=== PATIENT | male | born 1970 | race Caucasian/White ===

== ENCOUNTER → 2018-07-18 | Outpatient (CLI) | payer OTHER ==
--- NOTE | 2018-07-18 13:20 | PCVCIMAG ---
EXAM: BILATERAL SUPERFICIAL VENOUS DUPLEX INDICATION: Leg pain and swelling. FINDINGS: Right leg: No thrombus in the common femoral, main femoral, or popliteal veins. These veins are compressible. Right Great Saphenous Vein: At the saphenofemoral junction the diameter is 7.1 mm, in the mid thigh it is 5.2 mm, and in the calf it is 4.1 mm. There is not significant venous insufficiency/reflux throughout. Venous insufficiency/reflux duration is 0.3 seconds. Right Small Saphenous Vein: At the saphenopopliteal junction the diameter is 5.1 mm, and in the calf it is 7.3 mm. There is not significant venous insufficiency/reflux throughout. Venous insufficiency/reflux duration is 0 seconds. There is not a cranial extension present. Left leg: No thrombus in the common femoral, main femoral, or popliteal veins. These veins are compressible. Left Great Saphenous Vein: At the saphenofemoral junction the diameter is 7.1 mm, in the mid thigh it is 5.6 mm, and in the calf it is 4.8 mm. There is not significant venous insufficiency/reflux throughout. Venous insufficiency/reflux duration is 0 seconds. Left Small Saphenous Vein: At the saphenopopliteal junction the diameter is 4.0 mm, and in the calf it is 5.7 mm. There is not significant venous insufficiency/reflux throughout. Venous insufficiency/reflux duration is 0.2 seconds. There is not a cranial extension present. IMPRESSION: Right Great Saphenous Vein: No significant venous insufficiency/reflux is present as noted above. Right Small Saphenous Vein: No significant venous insufficiency/reflux is present as noted above. Left Great Saphenous Vein: No significant venous insufficiency/reflux is present as noted above. Left Small Saphenous Vein: No significant venous insufficiency/reflux is present as noted above. LOC:[id number]
--- NOTE | 2018-07-18 14:35 | PCVCIMAG ---
APPROVED REPORT Study performed: 07/18/2018 11:47:55 EXAM: Comprehensive 2D, Doppler, and color-flow Echocardiogram Patient Location: Echo lab Room #: 2Status: routine BSA: 2.22 HR: 871 bpmBP: 132/82 mmHg Rhythm: NSR Other Information Study Quality: Adequate Risk Factors: Cardiac Risk Factors: Hyperlipidemia Indications Palpitations Syncope Peripheral Edema Hypertension/HDD 2D Dimensions LVEF(%): 69.61 (>50%) IVSd: 8.22 (7-11mm)LVOT Diam: 23.78 (18-24mm) LVDd: 45.51 mm PWd: 9.76 (7-11mm)Ascending Ao: 33.52 (22-36mm) LVDs: 27.73 (25-40mm) Left Atrium: 27.35 (27-40mm) Aortic Root: 30.32 mm LV Single Plane 4CH: 62.52 % LV Single Plane 2CH: 62.27 %Fu's LVEF: 62.40 % Volumes Left Atrial Volume (Systole) Single Plane 4CH: 46.02 mLSingle Plane 2CH: 51.07 mL Biplane LA Volume: 49.00 mLLA ESV Index: 22.00 mL/m2 Aortic Valve AoV Peak Mino.: 1.45 m/s AO Peak Gr.: 8.38 mmHgLVOT Max P.65 mmHg LVOT Max V: 1.08 m/s FRANK Vmax: 3.30 cm2 Mitral Valve E/A Ratio: 1.0 MV Decel. Time: 146.61 ms MV E Max Mino.: 0.94 m/s MV A Mino.: 0.97 m/s IVRT: 72.66 ms TDI E/Lateral E': 8.55E/Medial E': 13.43 Medial E' Mino.: 0.07 m/s Lateral E' Mino.: 0.11 m/s Pulmonary Valve PV Peak Mino.: 1.11 m/sPV Peak Gr.: 4.94 mmHg Pulmonary Vein P Vein S: 0.79 m/sP Vein A: 0.76 m/s P Vein D: 0.47 m/sP Vein A Dur.: 83.0 msec P Vein S/D Ratio: 1.68 Tricuspid Valve TR Peak Mino.: 1.39 m/s TR Peak Gr.: 7.70 mmHg TV Vmax: 0.64 m/sPA Pressure: 15.00 mmHg Left Ventricle The left ventricle is normal size. There is normal LV segmental wall motion. There is normal left ventricular wall thickness. Left ventricular systolic function is normal. The left ventricular ejection fraction is within the normal range. LVEF is 60-65%. The left ventricular diastolic function is normal. Right Ventricle The right ventricle is normal size. The right ventricular systolic function is normal. Atria The left atrium size is normal. The right atrium size is normal. Aortic Valve Aortic valve is trileaflet. The aortic valve is normal in structure and function. No aortic regurgitation is present. There is no aortic valvular stenosis. Mitral Valve The mitral valve is normal in structure. There is no mitral valve regurgitation noted. No evidence of mitral valve stenosis. Tricuspid Valve The tricuspid valve is normal in structure. Trace tricuspid regurgitation. Pulmonic Valve The pulmonary valve is normal in structure. There is no pulmonic valvular regurgitation. Great Vessels The aortic root is normal in size. The ascending aorta is normal in size. Aortic arch is normal in caliber. IVC is normal in size and collapses with >50% inspiration Pericardium There is no pericardial effusion. There is no pleural effusion. <Conclusion> The left ventricle is normal size. There is normal left ventricular wall thickness. Left ventricular systolic function is normal. The right ventricle is normal size. The left atrium size is normal. There is no aortic valvular stenosis. There is no mitral valve regurgitation noted. Trace tricuspid regurgitation.
--- NOTE | 2018-07-18 14:36 | PCVCIMAG ---
APPROVED REPORT Study performed: 07/18/2018 12:25:08 Exam: Stress Echocardiogram Indication: Palpitations , Syncope Patient Location: Echo lab Stress Nurse: Brittney Pardo RN Room #: 2 Status: routine Ht: 5 ft 11 in HR: 82 bpm BP: 132/82 mmHg Rhythm: NSR Medical History Medical History: Hyperlipidemia Cardiac Risk Factors: Hyperlipidemia Previous Cardiac Procedures: none Pretest Chest Pain Characteristics: none Exercise History: Physically active Procedure The patient underwent an Exercise Stress Test using the Carlos Protocol. Blood pressure, heart rate, and EKG were monitored. An Echocardiogram was performed by radio/tv technician in four stages in quad fashion. At peak stress, four selected images were obtained and placed side by side with resting images for comparison. Stress Test Details Stress Test: Exercise stress testing was performed using a Carlos protocol. HR Resting HR: 82 bpmMax Heart Rate (APMHR): 172 bpm Max HR Achieved: 190 bpmTarget HR (85% APMHR): 146 bpm % of APMHR: 110 Recovery HR: 117 bpm HR response to stress: Normal HR response to stress BP Resting BP: 132/82 mmHg Max BP: 182/60 mmHg Recovery BP: 142/78 mmHg ECG Resting ECG: Sinus Rhythm Stress ECG: Sinus Rhythm ST Change: Non-ischemic Arrhythmia: None Recovery ECG: Sinus Rhythm Recovery ST Change: Non-ischemic Recovery Arrhythmia: None Clinical Reason for Termination: Maximal effort Stress Symptoms: none Exercise duration: 10 min sec Exercise capacity: 13.4 METs Overall Exercise Capacity for Age: Normal Scale: Active Angina Score: None Stress ECG Conclusion The patient exercised according to the CARLOS protocol for 10:00 mins; achieving a work level of 13.4 METS. The resting heart rate of 96 bpm garcia to a maximum heart rate of 190 bpm. This value represent 110% of the maximal, age-predicted heart rate. The resting blood pressure of 132/82 mmHg, garcia to a maximum blood pressure of 182/60 mmHg. The exercise test was stopped due to fatigue . Pre-Stress Echo The resting Echocardiogram showed normal left ventricular contractility with an estimated Ejection Fraction of about 55-60%. Normal wall motion in all segments on baseline images. Post-Stress Echo The stress Echocardiogram showed normal left ventricular contractility with an estimated Ejection Fraction of about 65-70%. Normal augmentation of wall motion in all segments on post stress images. Clinical No clinical or ECG evidence for ischemia. Conclusion Clinical Response: Non-ischemic Exercise Capacity: Average Stress ECG Response: Non-ischemic Stress Echo Images: Non-ischemic No clinical, EKG or echocardiographic evidence for ischemia. No echocardiographic evidence for exercise induced ischemia. Normal stress echocardiogram with maximal exercise stress. No prior study available for comparison. <Conclusion> No clinical, EKG or echocardiographic evidence for ischemia. No echocardiographic evidence for exercise induced ischemia. Normal stress echocardiogram with maximal exercise stress.
== END | disposition home or self-care (01) ==
LOC: PCVCIMAG 11:37
PROVIDERS: ATTEND Internal Medicine Cardiovascular Disease
DX: R60.0 Localized edema (principal); R55 Syncope and collapse; I10 Essential (primary) hypertension; R00.2 Palpitations
CPT/HCPCS: 93306; 93351; 93970